=== PATIENT | female | born 1975 | race Asian ===

== ENCOUNTER 2019-03-06 17:08 | Inpatient (IN) | payer OTHER ==
[~2019-03-06] VITALS: Ht 157.5 cm; Wt 53.5 kg
[2019-03-06] VITALS (9 sets, daily range): BP systolic 62–112; BP diastolic 54–81
--- NOTE | 2019-03-06 17:08 | NUR ---
PT BIBA ALS TO ER BED 10
[2019-03-06] MEDS ORDERED: TEMA15CA24 PO (17:14)
[2019-03-06] MEDS ORDERED: ROSU20TA1 PO (17:14)
[2019-03-06] MEDS ORDERED: CABO60TA PO (17:14)
[2019-03-06] MEDS ORDERED: FAMO-90 PO (17:14)
[2019-03-06] MEDS ORDERED: DEC4 PO (17:14)
[2019-03-06] MEDS ORDERED: VANCOMYCIN 1,000 MG in DEXTROSE 5% 250 ML IV ONE (17:15)
[2019-03-06] MEDS ORDERED: SULF-58 PO (17:15)
[2019-03-06] MEDS ORDERED: PIPERACILLIN/TAZOBACTAM 4.5 GM in DEXTROSE 5% 100 ML IV ONE (17:15)
[2019-03-06] MEDS ORDERED: NACL 0.9% 1,000 ML IV ONE ×2 (17:15)
--- NOTE | 2019-03-06 17:32 | NUR ---
GARCIA CATH WITH UROMETER INSERTED--NO RETURN OF URINE AT THIS TIME.
[2019-03-06] MEDS ORDERED: VANCOMYCIN 1,000 MG VIAL ONE (17:33)
[2019-03-06] MEDS ORDERED: ACETAMINOPHEN 650 MG SUPP RC ONE (17:35)
--- NOTE | 2019-03-06 18:05 | NUR ---
XRAY AT BEDSIDE
--- NOTE | 2019-03-06 18:07 | NUR ---
43/F WITH HX OF LUNG CA WITH METS TO THE BRAIN BIBA WITH BS 130, GCS 8, TACHYCARDIA 160, temp 104, BP 91/62, 22G TO RT HAND AND INFUSING NS IVF, ON 15L NON REBREATHER MASK. RHONCHI BILATERALLY IN ALL LUNG RIDDLE. EYES OPEN SPONTANEOUSLY. GENERALIZED WEAKNESS. RT AT BEDSIDE.
--- NOTE | 2019-03-06 18:31 | NUR ---
DR. BROUSSARD DISCUSSING POC WITH FAMILY AT BEDSIDE. NOTIFIED RT TO COME SUCTION PT PER DR. BROUSSARD ORDERS.
--- NOTE | 2019-03-06 18:35 | NUR ---
RT AT BEDSIDE.
--- NOTE | 2019-03-06 18:50 | NUR ---
DR. BROUSSARD USED [employer] HEAD CAGER #[id number] TO DISCUSS POC WITH AT BEDSIDE.
--- NOTE | 2019-03-06 18:55 | NUR ---
BP 86/64, REPEAT 97/53, DR. BROUSSARD NOTIFIED.
[2019-03-06] MEDS ORDERED: NOREPINEPHRINE 4 MG in DEXTROSE 5% 250 ML IV ONE (19:00)
--- NOTE | 2019-03-06 19:03 | NUR ---
Pt report given to Jorge RIOJAS. Transfer of care at this time.
[2019-03-06 19:09] LABS: BASOPHILS % (AUTO) 0.2 % (0.0-2.0); EOSINOPHILS % (AUTO) 0.1 % (0.0-4.0); HEMATOCRIT 44.1 % (36-48); HEMOGLOBIN 13.6 g/dL (12.0-16.0); LYMPHOCYTES # (AUTO) 0.3 K/uL (2.5-16.5); LYMPHOCYTES % (AUTO) 16.7 % (20.5-51.1); MEAN CORPUSCULAR HEMOGLOBIN 28 pg (27-31); MEAN CORPUSCULAR HGB CONC 31 g/dL (33-37); MEAN CORPUSCULAR VOLUME 90.7 fL (80-94); MONOCYTES # (AUTO) 0.1 K/uL (0.8-1.0); MONOCYTES % (AUTO) 4.6 % (1.7-9.3); NEUTROPHILS # (AUTO) 1.6 K/uL (1.8-7.7); NEUTROPHILS % (AUTO) 78.4 % (42.2-75.2); PLATELET COUNT (AUTO) 127 K/uL (140-450); RED BLOOD CELL COUNT(AUTO) 4.86 MIL/uL (4.20-5.40); RED CELL DISTRIBUTION WIDTH 20.1 % (11.6-13.7)
[2019-03-06] MEDS ORDERED: HYDROcodone/APAP 5/325 MG 1 TAB TAB PO PRN (19:40)
[2019-03-06] MEDS ORDERED: MORPHINE SULFATE 2 MG/ML SYR IVP PRN (19:40)
[2019-03-06] MEDS ORDERED: NOREPINEPHRINE 4 MG/4 ML VIAL IV ONE (19:40)
[2019-03-06] MEDS ORDERED: LORazepam 2 MG/ML VIAL IM/IVP PRN (19:40)
[2019-03-06] MEDS ORDERED: ZOLPIDEM 5 MG TAB PO PRN (19:40)
[2019-03-06] MEDS ORDERED: DOCUSATE SODIUM 100 MG GELCAP PO PRN (19:40)
[2019-03-06] MEDS ORDERED: ONDANSETRON 4 MG/2 ML VIAL IM/IVP PRN (19:40)
[2019-03-06 19:41] LABS: WHITE BLOOD COUNT (AUTO) 2.1 K/uL (4.8-10.8)
[2019-03-06 19:43] LABS: PROTHROMBIN TIME 14.2 secs (10.8-13.4)
--- NOTE | 2019-03-06 20:18 | NUR ---
Dr. Osullivan at patient bedside.
[2019-03-06 20:30] LABS: APPEARANCE,URINE CLOUDY (CLEAR); BILIRUBIN,URINE 1+ (NEGATIVE); BLOOD, URINE 3+ (NEGATIVE); COLOR,URINE YELLOW (YELLOW); LEUKOCYTE ESTERASE ,URINE TRACE (NEGATIVE); NITRITE, URINE NEGATIVE (NEGATIVE); PH,URINE 5.5 (5.0-9.0); UGLUCOSE NEGATIVE (NEGATIVE)
[2019-03-06] MEDS ORDERED: SUCCINYLCHOLINE CHLORIDE 200 MG/10 ML VIAL IVP ONE (20:35)
[2019-03-06] MEDS ORDERED: ETOMIDATE 20 MG/10 ML VIAL IVP ONE (20:35)
--- NOTE | 2019-03-06 20:35 | NUR ---
ADMINISTERED ETOMIDATED 10MG, SUCC 60MG.
--- NOTE | 2019-03-06 20:40 | NUR ---
PT INTUBATED. PT TOLERATED PROCEDURE.
--- NOTE | 2019-03-06 20:45 | NUR ---
REASSESSED ETOMIDATE AND SUCC. NADR. PT VSS. WILL CONTINUE TO MONITOR.
[2019-03-06] MEDS ORDERED: VANCOMYCIN PER PHARMACY MC PRN (20:50)
[2019-03-06] MEDS ORDERED: ALBUTEROL SULFATE/IPRATROPIU 3 ML SOL IH PRN (20:50)
[2019-03-06 20:54] LABS: BARBITURATE, URINE NEG. ng/ml (NEG <=200); BENZODIAZEPINE, URINE NEG. ng/mL (NEG <=200); CANNABINOID, URINE NEG. ng/mL (NEG <=50); COCAINE, URINE NEG. ng/mL (NEG <=300); OPIATE, URINE NEG. ng/mL (NEG <=2000); PHENCYCLIDINE SCREEN,URINE NEG. ng/mL (NEG <=25)
[2019-03-06 20:56] LABS: MAGNESIUM 2.1 mg/dL (1.8-2.4); PHOSPHORUS 2.7 mg/dL (2.5-4.9); THYROID STIMULATING HORMONE 0.63 uIU/mL (0.34-3.74)
[2019-03-06 20:58] LABS: RBC,URINE 50-80 /HPF (0-5)
[2019-03-06] MEDS: DEXT 5% /NACL 0.9% 1,000 ML IV SCH ×2 (20:58→21:34)
[2019-03-06 20:59] LABS: WBC,URINE NONE SEEN /HPF (0-5)
[2019-03-06 21:00] LABS: FINE GRANULAR CASTS,URINE 0-10 /LPF (None Seen); HYALINE CASTS, URINE 0-10 /LPF (None Seen)
--- NOTE | 2019-03-06 21:07 | NUR ---
RAD AT BEDSIDE
[2019-03-06 21:09] LABS: CREATINE KINASE MB 1.3 ng/mL (0-3.6)
[2019-03-06] MEDS ORDERED: HEPARIN PER PHARMACY MC PRN (21:15)
[2019-03-06] MEDS ORDERED: hePARIN / DEXT 5% PREMIX 250 ML IV SCH (21:15)
[2019-03-06] MEDS ORDERED: TEMAZEPAM 15 MG CAP PO PRN (21:35)
[2019-03-06] MEDS ORDERED: levETIRAcetam 100 MG/ML VIAL IV ONE ×2 (21:40→23:55)
--- NOTE | 2019-03-06 21:55 | NUR ---
PATIENT BROUGHT INTO ICU BED 2 VIA GURNEY. PATIENT ANOx0, CANNOT MAKE NEEDS KNOWN, OPENS EYES TO PAIN/SUCTION. ETT TO VENT, ACVC 12, FI02 100%, TV 450, PEEP 5, LUNG SOUNDS DIMINISHED, BREATHING IS UNLABORED. MODERATE AMOUNT OF BLOODY SECRETIONS NOTED IN ETT. S1S2, SINUS TACHYCARDIA ON MONITOR. BLOOD PRESSURE IS TRENDING LOW, BP-90/68, IV BOLUS CURRENTLY INFUSING. LARGE BLOTCH OF REDNESS WITH MINIMAL AMOUNTS OF WELTS NOTED ON ABDOMEN, SKIN INTACT, NO SIGNS OF SECRETIONS. GARCIA CATHETER IN PLACE WITH CLEAR DARK ALE URINE NOTED. RIGHT AND LEFT WRIST PERIPHERAL IV'S, BOTH 20G, FLUSHED AND PATENT. PROPOFOL INFUSING AT 5MCG/KG/MIN. RASS -2, PATIENT ABLE TO OPEN EYES. DRY WEIGHT 51KG. BED IS LOCKED AND IN LOW POSITION, HOB 30 DEGREES. WILL CONTINUE TO MONITOR.
--- NOTE | 2019-03-06 21:55 | NUR ---
PT ADMITTED TO ICU BED #2. TRANSFERRED PT VIA GRUNEY WITH SAYRA EMT, DANGELO EMT, AURY RT; STABLE CONDITION. REPORT GIVEN TO OSMAR RIOJAS. PT CARE TRANSFERRED TO RECEIVING RN.
[2019-03-06 22:00] LABS: ALBUMIN 1.7 g/dL (3.4-5.0); ANION GAP 19.3 (8-16); CREATININE 1.2 mg/dL (0.6-1.3); TOTAL BILIRUBIN 2.1 mg/dL (0.0-1.0)
[2019-03-06] MEDS ORDERED: NACL 0.9% 2,000 ML IV ONE (22:00)
[2019-03-06 22:03] LABS: POTASSIUM 2.3 mmol/L (3.5-5.1)
[2019-03-06] MEDS ORDERED: POTASSIUM CHLORIDE 10 MEQ TABER PO SCH (22:05)
[2019-03-06] MEDS ORDERED: KCL 20 MEQ/WATER INJ PREMIX 200 ML IV SCH (22:05)
--- NOTE | 2019-03-06 22:05 | NUR ---
MD RESIDENT UPDATING PATIENT FAMILY ON PATIENT CONDITION. USED DIRECTOR OF CLINICAL APPLICATIONS PHONE. DIRECTOR OF CLINICAL APPLICATIONS ID # [id number] [id number], LIBERIAN SPEAKING. PATIENT FAMILY VERBALIZED UNDERSTANDING. CONSENT SIGNED FOR CENTRAL LINE INSERTION.
--- NOTE | 2019-03-06 22:20 | NUR ---
PATIENT TURNED AND REPOSITIONED, PROVIDED ORAL CARE. PATIENT HAS PRODUCTIVE COUGH AND SLIGHTLY BLOODY SECRETIONS IN TUBING NOTED. PATIENT OPENS EYES TO LIGHT PAIN.
--- NOTE | 2019-03-06 23:25 | NUR ---
NGT INSERTED TO RIGHT NARE ON FIRST ATTEMPT. POSITIVE AIR CHECK/AUSCULTATION VERIFIED BY 2 RN's. PENDING XRAY CONFIRMATION.
--- NOTE | 2019-03-06 23:30 | NUR ---
PATIENT INTUBATED AND TRANSFERRED FROM ER TO ICU. PATIENT STABLE ON VENT AT THIS TIME. ABG DONE AND RESULTS READ TO RN, FIO2 LOWERED FROM 100% TO 40%. PATIENT STABLE NO RESP DISTRESS NOTED.
--- NOTE | 2019-03-06 23:40 | NUR ---
RESIDENT DOCTOR AT BEDSIDE TO START CENTRAL LINE INSERTION. TRANSPORTATION SECURITY OFFICER AND 2 RN's AT BEDSIDE, TIMEOUT COMPLETE.
[2019-03-07] VITALS (102 sets, daily range): BP systolic 72–155; BP diastolic 64–100
[2019-03-07] MEDS ORDERED: cefTRIAXone 1,000 MG VIAL ONE (00:46)
[2019-03-07] MEDS ORDERED: PIPERACILLIN/TAZOBACTAM 3.375 GM VIAL IV ONE (00:58)
--- NOTE | 2019-03-07 01:15 | NUR ---
LAST IV FLUID BOLUS COMPLETE, PATIENTS BLOOD PRESSURE 102/73, ST ON MONITOR, FLACC 0. WILL CONTINUE TO MONITOR.
[2019-03-07] MEDS: DEXT 5% / NACL 0.45% 1,000 ML IV SCH ×2 (02:26→18:05)
[2019-03-07] MEDS: levETIRAcetam 500 MG in NACL 0.9% 100 ML IV SCH ×3 (02:26→21:24)
[2019-03-07] MEDS: PIPERACILLIN/TAZOBACTAM 3.375 GM in DEXTROSE 5% 50 ML IV SCH ×5 (02:27→23:55)
[2019-03-07] MEDS: DEXAMETHASONE 4 MG/ML VIAL IVP SCH ×5 (02:33→23:56)
--- NOTE | 2019-03-07 03:00 | NUR ---
CHLORHEXIDINE BATH PROVIDED, PATIENT TOLERATED WELL, SEDATED, ON PROPOFOL DRIP, NO BOWEL MOVEMENT, DIAPER IN PLACE, GARCIA BAG EMPTIED, DARK ALE URINE NOTED. SKIN IS INTACT, SLIGHT REDNESS NOTED TO ABDOMEN, FAMILY REPORTED PATIENT HAD LEFT HEATING PAD ON STOMACH WHEN LOC DECREASED AND LEFT HEATING PAD ON SKIN. BED IS LOCKED AND IN LOW POSITION, PILLOWS PLACED TO SUPPORT HEAD. HOB 30 DEGREES, WILL CONTINUE TO MONITOR.
--- NOTE | 2019-03-07 04:00 | NUR ---
VAP ORAL CARE PROVIDED. FLACC 0, ST ON MONITOR, BLOOD PRESSURE STABLE, AFEBRILE.
--- NOTE | 2019-03-07 05:29 | NUR ---
0450 patient taken to cat scan being bagged and brought back and placed back on vent with no incident
--- NOTE | 2019-03-07 05:51 | NUR ---
RESIDENT MD MADE AWARE OF CRITICAL CT SCAN OF HEAD RESULTS. POSSIBLE INFARCT AND FOCAL HEMORRHAGE/CALCIFICATION. WILL CARRY OUT ANY NEW ORDERS.
[2019-03-07 06:46] LABS: EOSINOPHILS % (AUTO) 0.8 % (0.0-4.0); HEMATOCRIT 42.4 % (36-48); HEMOGLOBIN 12.9 g/dL (12.0-16.0); LYMPHOCYTES # (AUTO) 0.3 K/uL (2.5-16.5); LYMPHOCYTES % (AUTO) 9.5 % (20.5-51.1); MEAN CORPUSCULAR HEMOGLOBIN 28 pg (27-31); MEAN CORPUSCULAR HGB CONC 30 g/dL (33-37); MEAN CORPUSCULAR VOLUME 91.4 fL (80-94); MONOCYTES % (AUTO) 1.3 % (1.7-9.3); NEUTROPHILS # (AUTO) 2.8 K/uL (1.8-7.7); NEUTROPHILS % (AUTO) 88.4 % (42.2-75.2); PLATELET COUNT (AUTO) 108 K/uL (140-450); RED BLOOD CELL COUNT(AUTO) 4.65 MIL/uL (4.20-5.40); RED CELL DISTRIBUTION WIDTH 20.1 % (11.6-13.7); WHITE BLOOD COUNT (AUTO) 3.2 K/uL (4.8-10.8)
[2019-03-07 06:47] LABS: CARBON DIOXIDE 22.1 mmol/L (21-32); CREATININE 0.9 mg/dL (0.6-1.3); POTASSIUM 3.1 mmol/L (3.5-5.1)
--- NOTE | 2019-03-07 07:30 | NUR ---
RECEIVED PT FROM PM NURSE. PT DOES NOT OPEN EYES TO VERBAL STIMULI AND UNABLE TO FOLLOW COMMANDS. BEDSIDE MONITOR SHOWS ST 110S. RIGHT EYE PUPIL ACTIVE. LEFT EYE SLUGGISH. PT HAS IV TO RIGHT IJ AND LEFT WRIST # 20 RUNNING PROPOFOL 5 MCG/KG/MIN BASED ON DRY WEIGHT 51 KG, RASS -2 AND D5 1/2 NS AT 50 CC/HR. ETT TO VENT WITH SETTING FIO2=40%, TV= 450, PEEP 5, AC =12. ABD SOFT, PT HAS REDNESS TO UPPER ABD. PT HAS F/C IN PLACE WITH URINE NOTED. HOB ELEVATED 30 DEGREES WITH LOW BED POSITION, WILL CONTINUE TO MONITOR.
[2019-03-07 07:42] LABS: MAGNESIUM 1.6 mg/dL (1.8-2.4); PHOSPHORUS 2.5 mg/dL (2.5-4.9)
[2019-03-07] MEDS: ALBUTEROL SULFATE/IPRATROPIU 3 ML SOL IH SCH ×3 (07:53→19:14)
--- NOTE | 2019-03-07 08:49 | NUR ---
PATIENT HAS BEEN SCREENED AND CATEGORIZED HIGH NUTRITION RISK. PATIENT WILL BE SEEN WITHIN 1-2 DAYS OF ADMISSION. 03/07/19-03/08/[address]
[2019-03-07] MEDS ORDERED: NON-FORMULARY ITEM (Rosuvastatin Calcium* (Crestor*) 20 MG) PO SCH (09:00)
[2019-03-07] MEDS ORDERED: CABOZANTINIB S MALATE 60 MG PO SCH (09:00)
--- NOTE | 2019-03-07 09:00 | NUR ---
APPLIED SCD TO PT. PT RESPONDED TO SUCTION OR DEEP PAIN STIMULI ONLY, OPENS EYES ONLY. DOES NOT TALK OR FOLLOW COMMANDS.
[2019-03-07] MEDS: FAMOTIDINE 20 MG TAB PO SCH ×2 (09:30→21:24)
[2019-03-07] MEDS: KCL 20 MEQ/WATER INJ PREMIX 100 ML IV SCH ×2 (09:31→11:31)
--- NOTE | 2019-03-07 09:55 | NUR ---
STEAM LOCOMOTIVE FIRER/FIREMAN AT BEDSIDE.
--- NOTE | 2019-03-07 11:26 | NUR ---
PT ASLEEP IN BED NOT IN ANY DISTRESS. WILL CONTINUE TO MONITOR.
--- NOTE | 2019-03-07 12:00 | NUR ---
TURNED AND REPOSITIONED PT. NO S/S OF RESPIRATORY DISTRESS NOTED. PT TEMP 96.7F. GAVE PT WARM BLANKET.
[2019-03-07] MEDS ORDERED: CABO60TA PO (13:07)
--- NOTE | 2019-03-07 13:10 | NUR ---
DISCHARGE PLANNIN43 Y/O FEMALE PATIENT FROM HOME, WHO CAME IN DUE TO NON AROUSABLE FROM [id number]. PAST MEDICAL HISTORY INCLUDE STAGE 4 LUNG CA AND GERD. INITIAL DIAGNOSIS OF PNEUMONIA AND SEPSIS. LABS ON ADMISSION WBC 2.1, TODAY 3.2, NA/K 163/2.3 - 157/3.1., MAG 1.6, LACTIC ACID 3.4-3.1 AND TROPONIN 1.196-0.988. CARDIO CONSULT WITH DR. COUCH FOR ELEVATED TROPONIN. NEPHRO CONSULT WITH DR. ALCALA FOR HYPONATREMIA. NEURO CONSULT WITH JUDI LU FOR BRAIN METS. PULMO CONSULT WITH DR. MEDRANO FOR CRITICAL CARE/PULMO. CXR SHOWED SMALL LEFT PLEURAL EFFUSION AND PATCHY AND INTERSTITIAL OPACITIES IN THE LEFT LUNG. CT HEAD SHOWED CHRONIC SMALL VESSEL ISCHEMIC CHANGES AND CORTICAL ATROPHY; AND 1.6 X 2 X 1.4CM ABDIRAHMAN MIDBRAIN AREA OF LOW ATTENUATION POSSIBLE INFARC. ON ROCEPHIN, ZOSYN AND KEPPRA IV. ON PROPOFOL DRIP. DC PLAN PENDING ON PATIENT'S RESPONSE TO TREATMENT. Addendum: 03/09/19 at 0841 by Maribel Sandhu CURRENT LABS INCLUDE WBC 4.2, H/H 10.0/31.4, NA/K 147/3.3 AND PHOS 0.7. CXR SHOWED MULTIPLE LEFT LUNG CAVITARY LESIONS WHICH COULD REPRESENT INFECTION OR CARCINOMA, INCLUDING METASTASIS. RIGHT LOWER LOBE BRONCHIECTASIS AND BRONCHIAL WALL THICKENING. ONCOLOGIST CONSULT WITH DR. AMEZCUA FOR ST 4 LUNG CANCER. NEURO, PULMO, CRITICAL CARE CONSULTS IN PLACE. Addendum: 03/14/19 at 0909 by Maribel Sandhu CM PATIENT IS STILL ORALLY INTUBATED FIO2 24%. STILL ON ZOSYN, KEPPRA AND DEXAMETHASONE IV. CARDIO, ONCO, CRITICAL CARE/PULMO, NEPHRO AND NEURO CONSULTS IN PLACE. ON MODIFIED CODE NOW. FAMILY PLANS TO TERMINALLY EXTUBATE PATIENT TODAY. Addendum: 03/14/19 at 1306 by Maribel Sandhu CM FAMILY MEETING AT 1110 AM DONE. PATIENT EXTUBATED AT 1228PM AND WAS PLACED ON O2 AT 2LPM/NC.
--- NOTE | 2019-03-07 14:00 | NUR ---
RECHECKED TEMP 97.6F. NO S/S OF RESPIRATORY DISTRESS NOTED.
--- NOTE | 2019-03-07 14:02 | NUR ---
03/07/19 RD INITIAL ASSESSMENT COMPLETED PLEASE REFER TO NUTRITION ASSESSMENT UNDER CARE ACTIVITY FOR ESTIMATED NUTRITIONAL NEEDS. 1. RECOMMEND VITAL AF 1.2 @ 50 ML/HR -THIS WILL PROVIDE 1200 ML OF VOLUME, 1440 KCAL, AND 90 GM OF PROTEIN 2. RECOMMEND FREE WATER FLUSH 120 ML Q6H 3. IF/WHEN PT IS EXTUBATED, RECOMMEND A SWALLOW EVALUATION FOR AN ORAL DIET 4. RD TO FOLLOW-UP 2-3 DAYS, HIGH RISK CHUCHO BURGER RD
[2019-03-07] MEDS ORDERED: MAG SULF 2000 MG/WATER PREMIX 50 ML IV SCH (16:00)
--- NOTE | 2019-03-07 17:31 | NUR ---
PT NOT IN ANY DISTRESS AT THIS TIME. VENT ALARMS REMAIN ON AND FUNCTIONING. ETT REMAINS SECURE WITH A PATENT AIRWAY.
--- NOTE | 2019-03-07 18:00 | NUR ---
PYXIS DOES NOT WORK, UNABLE TO GET 1800 DECADRON. PHARMACIST MADE AWARE.
--- NOTE | 2019-03-07 18:48 | NUR ---
CALLED DR. STILES FOR CONSULTATION. NOTIFIED PT HAD LUNG CANCER METS TO BRAIN. WE DID EEG THIS MORNING . GO STATED WE SHOULD CONSULATE ONCOLOGIST. NOTIFIED FAB.
--- NOTE | 2019-03-07 19:10 | NUR ---
ENDORSED TO PM SHIFT SHINE RAUSCH
--- NOTE | 2019-03-07 19:45 | NUR ---
PATIENT LYING IN BED, EYES CLOSED, OPENS EYES TO LIGHT PAIN, ON SEDATION, RASS -2, DRY WEIGHT 51 KG. ETT TO VENT, ACVC 12, FI02 28%, TV 450, PEEP 5. LUNG SOUNDS ARE CLEAR BILATERALLY IN UPPER LOBES, AND DIMINISHED AT BASES. BREATHING IS EVEN AND UNLABORED. S1S2, SINUS TACH ON MONITOR. BLOOD PRESSURE STABLE. AFEBRILE. REDNESS ON ABDOMEN AND SLIGHT BUBBLING FORMING (DAILEY/WELTS). NGT IN PLACE TO RIGHT NARE, CONNECTED TO TUBE FEEDING, RATE AT 30ML/HR. RIGHT IJ IN PLACE, TRIPLE LUMEN, FLUSHED AND PATENT. INFUSING PROPOFOL AT 5 MCG/KG/MIN, IVF D5 1/2NS. LEFT AND RIGHT WRIST PERIPHERAL IV'S IN PLACE, BOTH 20G, FLUSHED AND PATENT, SALINE LOCKED. GARCIA CATHETER IN PLACE, STRAW COLORED URINE WITH SEDIMENTS NOTED. SCD's IN PLACE. BED IS LOCKED AND IN LOW POSITION, SAFETY ALARMS IN PLACE, HOB 30 DEGREES, WILL CONTINUE TO MONITOR.
--- NOTE | 2019-03-07 20:00 | NUR ---
AT BEDSIDE FOR UPDATE.
--- NOTE | 2019-03-07 21:05 | NUR ---
SCHEDULED MEDICATIONS ADMINISTERED, NGT AIR CHECK/AUSCULTATION CONFIRMED. RESIDUALS 35ML, CONTINUE TUBE FEEDING.
--- NOTE | 2019-03-07 21:45 | NUR ---
PATIENT HAS A SMALL PRESSURE INJURY ON THE SACRUM, DRESSING IN PLACE FROM HOME/. PICTURES AND MEASUREMENTS TAKEN AND PLACED IN CHART, CLEANED WOUND AND REPLACED DRESSING WITH OPTIFOAM. WILL FOLLOWUP WITH WOUND CONSULT.
--- NOTE | 2019-03-07 22:30 | NUR ---
VAP ORAL CARE PROVIDED, PATIENT WITHDRAWS TO PAIN. SUCTIONED ORALLY AND ENDOTRACHALLY, WHITE/CREAMISH SECRETIONS NOTED. PT TOLERATED WELL. FLACC 0. WILL CONTINUE TO MONITOR.
[2019-03-08] VITALS (98 sets, daily range): BP systolic 111–147; BP diastolic 70–97
--- NOTE | 2019-03-08 00:10 | NUR ---
TURNED AND REPOSITIONED PATIENT, USED PILLOWS TO HELP PROP HEAD WITH PROPER BODY ALIGNMENT. NO SIGNS OF DISTRESS NOTED AT THIS TIME.
--- NOTE | 2019-03-08 02:15 | NUR ---
EQUAL CHEST RISE AND FALL NOTED. BREATHING IS UNLABORED. OPENS EYES TO PAIN, PROPOFOL DRIP INFUSING, RASS -2.
--- NOTE | 2019-03-08 03:00 | NUR ---
SPOKE WITH COMMERCIAL INTELLIGENCE MANAGER, CONFIRMED THERE ARE TWO MORE PATIENTS IN ER FOR CT, WILL COME TO TRANSPORT PATIENT FOR CHEST CT AFTER. WILL FOLLOWUP
[2019-03-08] MEDS: DEXT 5% / NACL 0.45% 1,000 ML IV SCH (03:41)
--- NOTE | 2019-03-08 04:05 | NUR ---
PATIENT IN BED RESTING COMFORTABLY, AFEBRILE. PROVIDED VAP ORAL CARE. HOB 30 DEGREES, SIDERAILS UP x3.
--- NOTE | 2019-03-08 05:30 | NUR ---
PT TAKEN TO CT WITH RN, ORTHODONTIC BAND MAKER, RT AND RADIOLOGIST. PROPOFOL DRIP INFUSING, RT BAGGING PATIENT, TELE MONITOR CONNECTED.
--- NOTE | 2019-03-08 06:05 | NUR ---
PATIENT BACK TO ICU BED [address] SCAN. NO INCIDENTS NOTED. PATIENT CONNECTED TO VENT, SETTINGS ACVC 12, FI02 28%, TV 450, PEEP 5. SATURATIONS 100%. IV FLUIDS CONNECTED @ 50ML/HR. PATIENT IN STABLE CONDITION, VSS.
[2019-03-08 06:14] LABS: ANION GAP 12.4 (8-16); CARBON DIOXIDE 25.7 mmol/L (21-32); CREATININE 0.6 mg/dL (0.6-1.3); POTASSIUM 3.1 mmol/L (3.5-5.1)
[2019-03-08 06:15] LABS: PHOSPHORUS 1.4 mg/dL (2.5-4.9)
[2019-03-08 06:31] LABS: BASOPHILS % (AUTO) 0.1 % (0.0-2.0); EOSINOPHILS % (AUTO) 0.1 % (0.0-4.0); HEMATOCRIT 35.6 % (36-48); HEMOGLOBIN 11.1 g/dL (12.0-16.0); LYMPHOCYTES # (AUTO) 0.3 K/uL (2.5-16.5); LYMPHOCYTES % (AUTO) 4.5 % (20.5-51.1); MEAN CORPUSCULAR HEMOGLOBIN 28 pg (27-31); MEAN CORPUSCULAR HGB CONC 31 g/dL (33-37); MEAN CORPUSCULAR VOLUME 89.4 fL (80-94); MONOCYTES # (AUTO) 0.1 K/uL (0.8-1.0); MONOCYTES % (AUTO) 1.5 % (1.7-9.3); NEUTROPHILS # (AUTO) 7.3 K/uL (1.8-7.7); NEUTROPHILS % (AUTO) 93.8 % (42.2-75.2); PLATELET COUNT (AUTO) 92 K/uL (140-450); RED BLOOD CELL COUNT(AUTO) 3.98 MIL/uL (4.20-5.40); RED CELL DISTRIBUTION WIDTH 19.7 % (11.6-13.7); WHITE BLOOD COUNT (AUTO) 7.8 K/uL (4.8-10.8)
[2019-03-08] MEDS: ALBUTEROL SULFATE/IPRATROPIU 3 ML SOL IH SCH ×3 (06:56→19:17)
--- NOTE | 2019-03-08 06:59 | NUR ---
RECEIVED PT ON CARESCAPE ON DOCUMENTED SETTINGS, ALARMS ARE ON AND AUDIBLE, PTS ETT SIZE 7.5 IS SECURE [address] IN [address], PT IN HF NOT AWAKE, BS CLEAR , BMV HOB, VENT PLUGGED INTO RED OUTLET, WILL CONTINUE TO MONITOR
[2019-03-08] MEDS: PIPERACILLIN/TAZOBACTAM 3.375 GM in DEXTROSE 5% 50 ML IV SCH ×3 (07:08→17:28)
[2019-03-08] MEDS: DEXAMETHASONE 4 MG/ML VIAL IVP SCH ×3 (07:08→17:28)
--- NOTE | 2019-03-08 07:10 | NUR ---
ENDORSED CARE TO AM NURSE AT PATIENTS BEDSIDE. PATIENT SEDATED, RASS -2, FLACC 0.
--- NOTE | 2019-03-08 07:30 | NUR ---
RECEIVED PT FROM PM NURSE. PT OPENS EYES BUT NO TRACK. UNABLE TO FOLLOW COMMANDS. BEDSIDE MONITOR SHOWS SR RIGHT EYE PUPIL ACTIVE. LEFT EYE SLUGGISH. PT HAS IV TO RIGHT IJ AND LEFT WRIST # 20 RUNNING PROPOFOL 5 MCG/KG/MIN BASED ON DRY WEIGHT 51 KG, RASS -2 AND D5 1/2 NS AT 50 CC/HR. ETT TO VENT WITH SETTING FIO2=28%, TV= 450, PEEP 5, AC =12. ABD SOFT, SKIN NON INTACT ( SEE WOUND ASSESSMENT) PT HAS F/C IN PLACE WITH URINE NOTED. HOB ELEVATED 30 DEGREES WITH LOW BED POSITION, WILL CONTINUE TO MONITOR.
[2019-03-08] MEDS: levETIRAcetam 500 MG in NACL 0.9% 100 ML IV SCH ×2 (08:46→21:25)
[2019-03-08] MEDS ORDERED: CABOZANTINIB S MALATE 60 MG PO SCH (09:00)
[2019-03-08] MEDS ORDERED: MAG SULF 2000 MG/WATER PREMIX 50 ML IV SCH (09:00)
--- NOTE | 2019-03-08 09:05 | NUR ---
DR. KU NEPHRO CAME IN TO CHECK PT. UPDATED PT'S CONDITION. PER , STOP IVF, CARRIED OUT.
[2019-03-08] MEDS: KCL 20 MEQ/WATER INJ PREMIX 200 ML IV SCH ×2 (09:11→11:04)
--- NOTE | 2019-03-08 11:30 | NUR ---
IN TO CHECK PT. UPDATED PT'S CONDITION. HOLD PROPOFOL TO CHECK PT'S MENTAL STATUS PER DR. POLLOCK. PT OPENS EYES BUT DOES NOT FOLLOW COMMANDS EVEN IF PROPOFOL WAS OFF FOR ABOUT 20 MINUTES.
--- NOTE | 2019-03-08 12:00 | NUR ---
pepcid and liptor was given late due to pyxis out of order. called pharmacy to deliver meds.
[2019-03-08] MEDS: FAMOTIDINE 20 MG TAB PO SCH ×2 (12:20→21:25)
[2019-03-08] MEDS: ATORVASTATIN 20 MG TAB GT SCH (12:21)
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
[2019-03-08] MEDS ORDERED: ALGINATE ROPE MC SCH (13:10)
[2019-03-08] MEDS ORDERED: Z-GUARD PASTE TP SCH (13:11)
--- NOTE | 2019-03-08 16:00 | NUR ---
turned and repositioned pt. oral care given. suctioned pt with moderate amount of secretion. pt tolerated well.
[2019-03-08] MEDS: PROPOFOL 1000 MG/100 ML PREMIX 100 ML IV PRN (16:09)
--- NOTE | 2019-03-08 18:00 | NUR ---
pt resting in bed, no s/s of sob noted. vitals stable.
--- NOTE | 2019-03-08 19:10 | NUR ---
RECEIVED REPORT FROM DAYSHIFT NURSE AT PATIENTS BEDSIDE, VSS, NO SIGNS OF DISTRESS NOTED, WILL FOLLOWUP CARE.
--- NOTE | 2019-03-08 19:27 | NUR ---
PT RECEIVED FROM DAY SHIFT ON AC 12,450,+5, 35%. VENT PLUGGED INTO RED OUTLET. BMV AT BEDSIDE. PT SOUNDED CLEAR SAT 99%. WILL CONT TO MONITOR
--- NOTE | 2019-03-08 20:05 | NUR ---
PATIENT SEDATED, RASS -2. OPENS EYES TO PAIN, CANNOT TRACK, EYES REACTIVE TO LIGHT. ETT TO VENT, ACVC 12, FI02 28% TV 450, PEEP 5. LUNGS ARE CLEAR IN UPPER LOBES AND DIMINISHED AT BASES. BREATHING IS EQUAL AND UNLABORED. S1S2, SINUS RHYTHM ON MONITOR. NGT TO RIGHT NARE, CONNECTED TO TUBE FEEDING, RATE AT 30 ML. RIJ CENTRAL LINE IN PLACE, INFUSING PROPOFOL AT 5 MCG/KG/MIN, DRY WEIGHT 51KG. PERIPHERAL IV's AT LEFT AND RIGHT WRISTS, BOTH 20G, FLUSHED AND PATENT WITHOUT SYMPTOMS, SALINE LOCKED. ABDOMEN SOFT AND NONTENDER, WITH VERSATEL DRESSINGS NOTED. SMALL DAILEY WITH SKIN INTACT. GARCIA CATHETER IN PLACE WITH ALE COLORED URINE WITH SEDIMENT NOTED. PRESSURE INJURY WITH ZGUARD AND OPTIFOAM DRESSING IN PLACE, DRY AND INTACT. SCD'S IN PLACE AND HEEL PROTECTORS. BED IS LOCKED AND IN LOW POSITION, SIDERAILS UP, SAFETY ALARMS IN PLACE, HOB 30 DEGREES. WILL CONTINUE TO MONITOR.
--- NOTE | 2019-03-08 21:05 | NUR ---
PATIENT TURNED AND REPOSITIONED, VAP ORAL CARE PROVIDED. APPLIED ROLLED TOWELS TO MAINTAIN PROPER BODY ALIGNMENT WITH HEAD, PATIENT FLACCID.
--- NOTE | 2019-03-08 21:10 | NUR ---
NGT TO RIGHT NARE CONNECTED TO TUBE FEEDING. STOPPED INFUSION FOR AIR CHECK AND AUSCULTATION, CONFIRMED. RESIDUALS 5ML. MEDICATIONS ADMINISTERED.
--- NOTE | 2019-03-08 23:35 | NUR ---
RESTING WELL IN BED, NO S/SX OF DISTRESS. WILL CONTINUE TO MONITOR.
[2019-03-09] VITALS (100 sets, daily range): BP systolic 66–134; BP diastolic 33–83
[2019-03-09] MEDS: PIPERACILLIN/TAZOBACTAM 3.375 GM in DEXTROSE 5% 50 ML IV SCH ×4 (00:11→17:42)
[2019-03-09] MEDS: DEXAMETHASONE 4 MG/ML VIAL IVP SCH ×4 (00:11→17:45)
--- NOTE | 2019-03-09 00:30 | NUR ---
SCHEDULED MEDICATIONS GIVEN. PATIENT TURNED AND REPOSITIONED. DRESSING ON SACRUM IS DRY AND INTACT, NO DRAINAGE NOTED. MOVED BLOOD PRESSURE CUFF TO ARM, BP IS STABLE. SCD'S IN PLACE. PROVIDED ORAL CARE, +GAG REFLEX.
--- NOTE | 2019-03-09 02:05 | NUR ---
NO SIGNS OR SYMPTOMS OF DISTRESS OR SOB. PATIENT STILL ON PROPOFOL DRIP, ETT TO VENT, SETTINGS SET START OF SHIFT, WILL CONTINUE TO MONITOR.
--- NOTE | 2019-03-09 04:30 | NUR ---
SPONGE BATH, GARCIA CARE, AND VAP ORAL CARE PROVIDED. PATIENT TOLERATED FAIRLY. PATIENT COUGHS WITH POSITION CHANGES, MODERATE AMOUNT OF SECRETIONS NOTED. DRESSING TO SACRUM IS DRY AND INTACT. SCD'S IN PLACE, OFFLOADED PRESSURE SITES. SIDERAILS UP x3, HOB 30 DEGREES.
--- NOTE | 2019-03-09 06:15 | NUR ---
TURNED AND REPOSITIONED PATIENT, USE ROLLED TOWELS AND PILLS TO HELP PROP HEAD AND UPPER EXTREMITIES. D/C LEFT PERIPHERAL IV DUE TO SLIGHT HAND SWELLING, NON PITTING. FLACC 0.
[2019-03-09 06:16] LABS: HEMATOCRIT 31.4 % (36-48); LYMPHOCYTES # (AUTO) 0.2 K/uL (2.5-16.5); LYMPHOCYTES % (AUTO) 3.9 % (20.5-51.1); MEAN CORPUSCULAR HEMOGLOBIN 28 pg (27-31); MEAN CORPUSCULAR HGB CONC 32 g/dL (33-37); MEAN CORPUSCULAR VOLUME 88.3 fL (80-94); MONOCYTES # (AUTO) 0.1 K/uL (0.8-1.0); MONOCYTES % (AUTO) 1.6 % (1.7-9.3); NEUTROPHILS % (AUTO) 94.5 % (42.2-75.2); PLATELET COUNT (AUTO) 78 K/uL (140-450); RED BLOOD CELL COUNT(AUTO) 3.56 MIL/uL (4.20-5.40); RED CELL DISTRIBUTION WIDTH 18.9 % (11.6-13.7); WHITE BLOOD COUNT (AUTO) 4.2 K/uL (4.8-10.8)
[2019-03-09 06:20] LABS: ANION GAP 12.7 (8-16); CARBON DIOXIDE 26.6 mmol/L (21-32); CREATININE 0.4 mg/dL (0.6-1.3); POTASSIUM 3.3 mmol/L (3.5-5.1)
[2019-03-09 06:21] LABS: MAGNESIUM 2.4 mg/dL (1.8-2.4)
[2019-03-09 06:36] LABS: PHOSPHORUS 0.7 mg/dL (2.5-4.9)
[2019-03-09] MEDS ORDERED: SODIUM PHOS / POTASSIUM PHOS 1 PKT PDR NG SCH (07:00)
[2019-03-09] MEDS: ALBUTEROL SULFATE/IPRATROPIU 3 ML SOL IH SCH ×3 (07:01→21:04)
--- NOTE | 2019-03-09 07:01 | NUR ---
REC'D PT ON CARESCAPE VENT SETTINGS AC 12 VT 450 PEEP 5 FIO2 28% ALARMS ON AND AUDIBLE AND AMBU BAG AT SIDE OF VENT AND VENT IS PLUGGED INTO RED OUTLET, I\L TX GIVEN WITH DUONEB 3ML WITH NO ADVERSE REACTION POST TX, SNX PT MODERATE AMT OF [place] SECRETIONS B\S ARE RHONCHI BILATERALLY, PT IS ORALLY INTUBATED WITH 7.5 ET TUBE SECURED AT 21CM AND PT IS SLEEPING
--- NOTE | 2019-03-09 07:40 | NUR ---
RECEIVED PT FROM PM NURSE. PT OPENS EYES BUT UNABLE TO TRACK. UNABLE TO FOLLOW COMMANDS OR MAKE NEEDS KNOWN. BEDSIDE MONITOR SHOWS SR 80S. PT HAS IV TO RIGHT IJ RUNNING PROPOFOL 5 MCG/KG/MIN BASED ON DRY WEIGHT 51 KG, RASS -2 . ETT TO VENT WITH SETTING FIO2=28%, TV= 450, PEEP 5, AC =12. ABD SOFT, SKIN NON INTACT ( SEE WOUND ASSESSMENT). PT HAS NG TUBE FEEDING IN PLACE. PT HAS F/C IN PLACE WITH URINE NOTED. HOB ELEVATED 30 DEGREES WITH LOW BED POSITION, WILL CONTINUE TO MONITOR.
--- NOTE | 2019-03-09 08:30 | NUR ---
TURNED AND REPOSITIONED PT. ORAL CARE GIVEN, HU CARE GIVEN. TUBE FEEDING RESIDUAL CHECKED 70 CC ,RETURNED IT BACK. NG TUBE IN RIGHT PLACE, PLACEMENT CHECKED.
[2019-03-09] MEDS ORDERED: KCL 20 MEQ/WATER INJ PREMIX 100 ML IV SCH (09:00)
[2019-03-09] MEDS: levETIRAcetam 500 MG in NACL 0.9% 100 ML IV SCH ×2 (09:03→21:26)
[2019-03-09] MEDS: ATORVASTATIN 20 MG TAB GT SCH (09:03)
[2019-03-09] MEDS: FAMOTIDINE 20 MG TAB PO SCH ×2 (09:03→21:26)
--- NOTE | 2019-03-09 12:47 | NUR ---
03/09/19 RD FOLLOW UP COMPLETED PLEASE REFER TO NUTRITION ASSESSMENT UNDER CARE ACTIVITY FOR ESTIMATED NUTRITIONAL NEEDS. 1. RECOMMEND VITAL AF 1.2 @ 50 ML/HR -THIS WILL PROVIDE 1200 ML OF VOLUME, 1440 KCAL, AND 90 GM OF PROTEIN 2. RECOMMEND FREE WATER FLUSH 120 ML Q6H 3. IF/WHEN PT IS EXTUBATED, RECOMMEND A SWALLOW EVALUATION FOR AN ORAL DIET. 4. RD TO FOLLOW-UP 2-3 DAYS, HIGH RISK CHUCHO BURGER RD
--- NOTE | 2019-03-09 13:35 | NUR ---
PT HAD MODERATE AMOUNT OF STOOL, SOME FORMED, SOME LIQUID. CLEANED PT. BED SHEET CHANGED. PT TOLERATED WELL.
--- NOTE | 2019-03-09 16:00 | NUR ---
NOTIFIED DR. LEMUS FOR PROPOFOL INFUSION BECAUSE NO MATTER PT IS ON OR OFF PROPOFOL. MENTAL STATUS NO CHANGE AND PT IS ON MINIMUM 5 MCG/KG/MIN. DR. LEMUS TOLD ME HE WILL GET ME BACK HE NEEDS TO ASK HIS SENIOR DOCTOR.
[2019-03-09] MEDS: PROPOFOL 1000 MG/100 ML PREMIX 100 ML IV PRN (16:57)
--- NOTE | 2019-03-09 18:39 | NUR ---
PT HAD BM AGAIN, BED SHEET CHANGED, CLEANED PT. WOUND DRESSING TO SACRAL CHANGED AGAIN. SOME FRESH BLOOD CAME OUT FROM NG TUBE WHILE TURNING PT, ALSO SOME TINGED-BLOOD NOTED WHILE SUCTIONING PT. NOTIFIED CHARGE NURSE AND
--- NOTE | 2019-03-09 19:16 | NUR ---
RECEIVED PT FROM DAY SHIFT ON AC 12,450,+5,28%. ALARMS AUDIBLE AND CLEAR. VENT PLUGGED INTO RED OUTLET. BMV AT BEDSIDE. WILL CONT. TO MONITOR
--- NOTE | 2019-03-09 19:20 | NUR ---
RT AT BEDSIDE. CHANGE OF SHIFT REPORT DONE AT BEDSIDE BY DAY NURSE KATIA. PATIENT ETT TO VENT [phone]. [phone] AT LIP. PATIENT PERRL BILATERALLY AND SYMMETRICAL. NG TUBE IN NARES. WITH TUBE FEEDING VITAL AF 1.2 AT RATE OF 30 AND FREE WATER FLUSH OF 120Q4H. PATIENT TOLERATING WELL. NO RESIDUAL NOTED. NG TUBE IN PLACE VIA AUSCULTATION. PATIENT HAS RIGHT IJ ASYMPT OF INFECTION, PATENT AND IN PLACE. SEDATED BY RIJ RUNNING PROPOFOL AT 5MCG/KG/MIN WITH DRY WEIGHT OF 51 KG AND RASS -2. OPENS EYES TO VOICE OR TOUCH. SKIN NOT INTACT. SEE WOUND CARE ASSESSMENT. RESPIRATIONS UNLABORED AND WNL. LUNG SOUNDS CLEAR. HR REGULAR. BOWEL SOUNDS ACTIVE IN ALL 4 QUAD. PATIENT HAS MILD EDEMA ON BILATERAL HANDS. PULSES PRESENT ON ALL EXTREMITIES. NON SKID SOCKS PRESENT WITH HEEL PROTECTORS ON. PATIENT HAS GARCIA CATHETER WITH YELLOW URINE RUNNING IN TUBE WITH SEDIMENT NOTED. DR. GASTELUM CALLED TO CONFIRM PROPOFOL ORDER OF RASS -2. READ BACK RASS TO BE -2. CONTACT PRECAUTIONS. SIDE RAILS UP. BED IN LOWEST POSITION. OPENS EYES TO VOICE. VSS. NO SOB OR S/S OF DISTRESS NOTED. WILL CONTINUE TO MONITOR.
--- NOTE | 2019-03-09 20:20 | NUR ---
ENTERED UNIT. AT BEDSIDE. CONTACT PRECAUTIONS IN PLACE. VSS. PATIENT REPOSITIONED AND VAP ORAL CARE GIVEN.PATIENT TOLERATED WELL. WILL CONTINUE TO MONITOR.
--- NOTE | 2019-03-09 21:00 | NUR ---
MEDICATION ADMINISTRATION PER MD ORDERS. TOLERATED WELL. VSS. PATIENT OPENED EYES TO TOUCH AND VOICE. WILL CONTINUE TO MONITOR. Addendum: 03/10/19 at 0205 by Olga Barrera RN RT ALSO AT BEDSIDE
--- NOTE | 2019-03-09 22:34 | NUR ---
KUB BEING DONE AT BEDSIDE. RADIOLOGY AT BEDSIDE. WILL CONTINUE TO MONITOR. TOLERATED WELL.
--- NOTE | 2019-03-09 22:40 | NUR ---
RT AT BEDSIDE TO CHECK TUBING AND CONNECTIONS. CHECKED BALLOON AND FILLED. CHECKED PLACEMENT OF NG TUBE. NG TUBE IN PLACE PER AUSCULTATION. VSS. WILL CONTINUE TO MONITOR.
--- NOTE | 2019-03-09 23:18 | NUR ---
RT AT BEDSIDE.VSS.
[2019-03-10] VITALS (16 sets, daily range): BP systolic 94–105; BP diastolic 64–74
--- NOTE | 2019-03-10 00:05 | NUR ---
VAP ORAL CARE PERFORMED. REPOSITIONED PATIENT. AFEBRILE. TOLERATED WELL. NO SOB. NO S/S OF DISTRESS NOTED. WILL CONTINUE TO MONITOR. VSS
[2019-03-10] MEDS: DEXAMETHASONE 4 MG/ML VIAL IVP SCH (00:34)
[2019-03-10] MEDS: PIPERACILLIN/TAZOBACTAM 3.375 GM in DEXTROSE 5% 50 ML IV SCH (00:34)
--- NOTE | 2019-03-10 01:26 | NUR ---
RT AT PATIENT BEDSIDE. VSS. PATIENT FLACC 0. RASS -2. NO SOB OR S/S OF DISTRESS NOTED. WILL CONTINUE TO MONITOR.
--- NOTE | 2019-03-10 03:31 | NUR ---
PATIENT LYING IN BED. VSS. URINE IN GARCIA CATHETER BAG. NO SOB NOTED. NO S/S OF DISTRESS. WILL CONTINUE TO MONITOR.
[2019-03-10] MEDS ORDERED: POTASSIUM CHLORIDE 20% 40 MEQ/15 ML UDC ONE (13:49)
[2019-03-11 07:27] VITALS: BP 108/74
[2019-03-11] MEDS: levETIRAcetam 500 MG in NACL 0.9% 100 ML IV SCH ×2 (08:32→21:00)
[2019-03-11] MEDS: ATORVASTATIN 20 MG TAB GT SCH (08:33)
[2019-03-11] MEDS: FAMOTIDINE 20 MG TAB PO SCH ×2 (08:33→21:00)
[2019-03-11] MEDS ORDERED: POTASSIUM PHOSPHATE 15 MM in NACL 0.9% 250 ML IV ONE (08:35)
[2019-03-11] MEDS ORDERED: POTASSIUM CHLORIDE 20% 40 MEQ/15 ML UDC NG SCH (08:35)
--- NOTE | 2019-03-11 19:00 | NUR ---
RECEIVED REPORT FORM SHINE [facility] FOR CONTINUITY OF CARE.
--- NOTE | 2019-03-11 19:20 | NUR ---
ASSUMED CARE OF PT.INITIAL ASSESSMENT COMPLETED.PT LETHARGIC.OPENS EYES SPONTANEOUSLY BUT NOT FOLLOWING COMMANDS, DOES NOT TRACK.NSR NOTED ON MONITOR.WITH PITTING EDEMA TO RT HAND ALSO NOTED +1.ELEVATED WITH PILLOW.ETT TO VENT; FIO2 24% TV450 AC 12 PEEP5. 100% 02SAT AT THIS TIME.PT COUGHING INTERMITTENTLY WITH SMALL TO MODERATE AMT OF WHITE SECRETIONS SUCTIONED WITH BLOOD.WITH NGT TO LT NARES, IN PLACE.NO RESIDUALS NOTED.ON VITAL AF 1.2 AT 50ML/HR WITH WATER FLUSH ORDERED.WITH GARCIA CATHETER TO BSD DRAINING ADEQUATE AMT OF YELLOW URINE.BM NOTED SMALL AMT OF DARK BROWN SOFT TO LIQUID STOOL.PT CLEANED.PRESSURE ULCER TO SACRUM ALSO NOTED (SEE WOUND ASSESSMENT).PT WITH SEVERE GENERALIZED WEAKNESS NOTED TO ALL EXTREMITIES.FLACC 0.REPOSITIONED.
[2019-03-11 20:00] VITALS: BP 109/68
--- NOTE | 2019-03-11 20:00 | NUR ---
ORAL CARE USING VAP KIT RENDERED.PT ON PEPCID FOR GI PROPHYLAXIS AND SCD TO BLE FOR DVT PROPHYLAXIS.
[2019-03-11 20:11] LABS: ANION GAP 12.2 (8-16); MAGNESIUM 2.1 mg/dL (1.8-2.4); POTASSIUM 3.2 mmol/L (3.5-5.1)
[2019-03-11] MEDS ORDERED: levETIRAcetam 100 MG/ML VIAL IV ONE (20:13)
--- NOTE | 2019-03-11 21:15 | NUR ---
VISITED BY ; UPDATED ON PTS PRESENT CONDITION.QUESTIONS ANSWERED.
[2019-03-11 22:00] VITALS: BP 115/76
[2019-03-11 23:05] VITALS: BP 112/79
[2019-03-12] VITALS (23 sets, daily range): BP systolic 99–123; BP diastolic 67–79
--- NOTE | 2019-03-12 | NUR ---
ORAL CARE DONE.PT REPOSITIONED.SECRETIONS SUCTIONED/ETT AND MOUTH.MODERATE AMT OF THICK CREAMY/DARK BROWN /BLOOD TINGED SECRETIONS NOTED.FLACC 0.REPOSITIONED
[2019-03-12] MEDS: DEXAMETHASONE 4 MG/ML VIAL IVP SCH ×6 (00:46→18:15)
[2019-03-12] MEDS: Z-GUARD PASTE TP SCH (00:47)
[2019-03-12] MEDS: PIPERACILLIN/TAZOBACTAM 3.375 GM in DEXTROSE 5% 50 ML IV SCH ×4 (00:47→18:09)
--- NOTE | 2019-03-12 02:21 | NUR ---
PTS CONDITION REMAINS UNCHANGED.PTS EYES OPEN, NOT TRACKING.FLACC 0.REPOSITIONED
--- NOTE | 2019-03-12 03:46 | NUR ---
bm noted; moderate amt of dark brown liquid stool; morning care done.oral care rendered,pt still coughing intermittently,able to suctioned moderate amt of creamy w/blood tinged secretions.flacc 0.repositioned.
[2019-03-12] MEDS ORDERED: MORPHINE SULFATE 2 MG/ML SYR IVP PRN ×2 (04:20→18:00)
[2019-03-12 06:03] LABS: MAGNESIUM 1.8 mg/dL (1.8-2.4); PHOSPHORUS 1.5 mg/dL (2.5-4.9)
[2019-03-12 06:06] LABS: CREATININE 0.3 mg/dL (0.6-1.3)
--- NOTE | 2019-03-12 06:21 | NUR ---
pts eyes close.nsr on monitor.02sat 100%.flacc 0.repositioned.
[2019-03-12 06:43] LABS: BASOPHILS % (AUTO) 0.1 % (0.0-2.0); HEMATOCRIT 26.8 % (36-48); HEMOGLOBIN 8.6 g/dL (12.0-16.0); LYMPHOCYTES # (AUTO) 0.2 K/uL (2.5-16.5); LYMPHOCYTES % (AUTO) 9.5 % (20.5-51.1); MEAN CORPUSCULAR HEMOGLOBIN 28 pg (27-31); MEAN CORPUSCULAR HGB CONC 32 g/dL (33-37); MEAN CORPUSCULAR VOLUME 88.1 fL (80-94); MONOCYTES # (AUTO) 0.1 K/uL (0.8-1.0); MONOCYTES % (AUTO) 4.9 % (1.7-9.3); NEUTROPHILS # (AUTO) 1.5 K/uL (1.8-7.7); NEUTROPHILS % (AUTO) 85.5 % (42.2-75.2); PLATELET COUNT (AUTO) 137 K/uL (140-450); RED BLOOD CELL COUNT(AUTO) 3.04 MIL/uL (4.20-5.40); RED CELL DISTRIBUTION WIDTH 18.6 % (11.6-13.7)
[2019-03-12 06:53] LABS: ANION GAP 12.5 (8-16); CARBON DIOXIDE 26.7 mmol/L (21-32); POTASSIUM 3.2 mmol/L (3.5-5.1)
[2019-03-12 06:54] LABS: CREATININE 0.3 mg/dL (0.6-1.3); WHITE BLOOD COUNT (AUTO) 1.8 K/uL (4.8-10.8)
[2019-03-12] MEDS: ALBUTEROL SULFATE/IPRATROPIU 3 ML SOL IH SCH ×3 (07:00→19:00)
--- NOTE | 2019-03-12 07:07 | NUR ---
REPORT GIVEN TO SHINE COLE
--- NOTE | 2019-03-12 07:30 | NUR ---
RECEIVED REPORT FROM ANITA RIOJAS PT IS ETT TO VENT FIO2 AT 24% AC12 VT 450 PEEP OF 5/ O2 SAT 99%.HER SKIN DRY AND WARM TO TOUCH COLOR IS NORMAL HAS RED RASH ON LEFT FACE , HAS BLISTER ON ABDOMEN. PRESSURE SORE ON SACRAL . NGTUBE FEEDING WITH VITAL AF 1.2 AT 50ML./HR ABDOMEN SOFT BOWEL SOUND ACTIVE.GARCIA CATH DRAIN LIGHT ALE URINE . SCD AND HEELS PROTECTERS IN PLACE.
--- NOTE | 2019-03-12 07:36 | NUR ---
rec'd pt on carescape vent settings ac 12 vt 450 peep 5 fio2 24% alarms on and audible and ambu bag at hob no tx given pt sleeping with no signs of distress noted at this time, b\s are clear bilaterally, sxn pt small amt of cream color secretions, pt is orally intubated with 7.5 et tube secured with anchor fast at 24 cm pt is sleeping
--- NOTE | 2019-03-12 07:45 | NUR ---
CELIA BAEZA MAKE ROUND WITH THE RESIDENTS PLAN TO HAVE MEETING WITH FAMILY AT 1300.PM.
[2019-03-12] MEDS ORDERED: POTASSIUM PHOSPHATE 15 MM in NACL 0.9% 250 ML IV SCH (08:30)
[2019-03-12] MEDS ORDERED: POTASSIUM CHLORIDE 20% 40 MEQ/15 ML UDC NG SCH (08:30)
--- NOTE | 2019-03-12 08:30 | NUR ---
REPOSITION ORAL CARE WITH VAP KIT.
[2019-03-12 09:51] LABS: PHOSPHORUS 0.7 mg/dL (2.5-4.9)
--- NOTE | 2019-03-12 10:00 | NUR ---
VISIT AT BED SIDE. WILL HAVE MEETING WITH THE DOCTER THIS AFTERNOON,.
[2019-03-12] MEDS: levETIRAcetam 500 MG in NACL 0.9% 100 ML IV SCH ×2 (10:16→20:22)
[2019-03-12] MEDS: FAMOTIDINE 20 MG TAB PO SCH ×2 (10:17→20:21)
[2019-03-12] MEDS: ATORVASTATIN 20 MG TAB GT SCH (10:17)
--- NOTE | 2019-03-12 10:30 | NUR ---
REPOSITION INCONTINENT OF LARGE LOOSE BM .
[2019-03-12 10:40] LABS: BASOPHILS % (AUTO) 0.1 % (0.0-2.0); HEMATOCRIT 28.8 % (36-48); HEMOGLOBIN 9.1 g/dL (12.0-16.0); LYMPHOCYTES # (AUTO) 0.2 K/uL (2.5-16.5); LYMPHOCYTES % (AUTO) 7.8 % (20.5-51.1); MEAN CORPUSCULAR HEMOGLOBIN 28 pg (27-31); MEAN CORPUSCULAR HGB CONC 32 g/dL (33-37); MEAN CORPUSCULAR VOLUME 87.2 fL (80-94); MONOCYTES # (AUTO) 0.1 K/uL (0.8-1.0); MONOCYTES % (AUTO) 2.6 % (1.7-9.3); NEUTROPHILS # (AUTO) 2.4 K/uL (1.8-7.7); NEUTROPHILS % (AUTO) 89.5 % (42.2-75.2); PLATELET COUNT (AUTO) 86 K/uL (140-450); RED CELL DISTRIBUTION WIDTH 19.1 % (11.6-13.7); WHITE BLOOD COUNT (AUTO) 2.7 K/uL (4.8-10.8)
[2019-03-12] MEDS ORDERED: LOPERAMIDE 1 MG/5 ML ORASYR NG SCH (12:00)
--- NOTE | 2019-03-12 12:20 | NUR ---
HAS VISIT BY FAMILY FROM [place] 12 OF THEM, WHO WILL HAVE THE MEETING WITH DR LEMUS AND .
--- NOTE | 2019-03-12 12:57 | NUR ---
pt has very high heart rate of 124 no hhn given family at bedside
--- NOTE | 2019-03-12 14:00 | NUR ---
REPOSITION SUCTION HAS LOOSE SECRETION,
--- NOTE | 2019-03-12 16:00 | NUR ---
REPOSITION , ORAL CARE GIVEN,
--- NOTE | 2019-03-12 19:10 | NUR ---
Received pt stable on vent support at documented settings, suctioned moderate amounts of thick yellow secretions along with thick red mucous plugs, hhn tx given, tolerated well, no resp dsitress or SOB noted at this time, 7.5 ETT secured at 24 cm with anchorfast, alarms set and audible, ambu bag at bedside, vent plugged into red outlet, vent wiped down, cont pulse ox on, will cont to monitor.
--- NOTE | 2019-03-12 19:20 | NUR ---
VITAL SIGN WITH IN MNORMAL LIMIT REPORT GIVE TO ROLA RIOJAS.
--- NOTE | 2019-03-12 19:35 | NUR ---
RECEIVED PT FROM ROLA RN. PT LETHARGIC. PERRL. PUPILS SIZE 3 MM BILATERALLY. NOT ABLE TO OPEN EYES SPONTANEOUSLY, NOT TRACKING. WITHDRAWS TO PAIN. NOT ABLE TO SQUEEZE HANDS. NOT ABLE TO FOLLOW SIMPLE COMMANDS. PT ETT TO VENT. LIP LINE AT 23CM. ON ACVC SETTINGS. FIO2 24% TV 450 RATE 12 PEEP 5. LUNG SOUNDS CLEAR. NO SOB NOTED. CHEST RISE SYMMETRICAL AND EVEN. SINUS TACHYCARDIA ON MONITOR. BASELINE 100-105. NGT IN LEFT NARE TO FEEDING VITAL AF 1.2. AUSCULTATED FOR VERIFICATION. NO RESIDUALS NOTED. BOWEL SOUNDS ACTIVE. RIGHT EJ, TRIPLE LUMEN, INTACT, PATENT, FLUSHED. GARCIA CATHETER IN PLACE. LIGHT ALE URINE. SKIN WARM AND DRY. CAP REFILL LESS THAN 2 SECONDS. WOUND NOTED ON SACRUM. SEE WOUND ASSESSMENT. SCD ON BILATERAL LOWER EXTREMITIES. CANNOT MOVE BILATERAL UPPER AND LOWER EXTREMITIES. ON CONTACT PRECAUTIONS. ALARMS CHECKED. HOB 30 DEGREES. BED LOCKED IN LOWEST POSITION. WILL CONTINUE MONITOR.
--- NOTE | 2019-03-12 20:30 | NUR ---
AT BESIDE. UPDATE GIVEN, QUESTIONS ANSWERED. EXPLAINED PLAN OF CARE. TOLD WILL CALL IF ANY CHANGES IN CONDITION.
--- NOTE | 2019-03-12 22:16 | NUR ---
PT REPOSITIONED. LOOSE, LIQUID, BROWN BOWEL MOVEMENT. MODERATE AMOUNT. FOUL ODOR NOTED. HU CARE PROVIDED. BED IN LOWEST POSITION. WILL CONTINUE TO FREQUENTLY MONITOR.
[2019-03-13] VITALS (24 sets, daily range): BP systolic 103–128; BP diastolic 70–81
--- NOTE | 2019-03-13 00:50 | NUR ---
DUE MEDICATIONS GIVEN. EDUCATION PROVIDED. ORAL CARE PROVIDED. TUBE FEEDINGS CHANGED. V/S STABLE. WILL CONTINUE TO FREQUENTLY MONITOR.
[2019-03-13] MEDS: PIPERACILLIN/TAZOBACTAM 3.375 GM in DEXTROSE 5% 50 ML IV SCH ×4 (00:58→17:37)
[2019-03-13] MEDS: DEXAMETHASONE 4 MG/ML VIAL IVP SCH ×4 (00:59→17:37)
--- NOTE | 2019-03-13 02:29 | NUR ---
PATIENT RESTING IN BED. NO SIGNS OF PAIN. V/S STABLE. WILL CONTINUE TO FREQUENTLY MONITOR.
--- NOTE | 2019-03-13 04:30 | NUR ---
RECEIVED PATIENT FROM RN SUMMER FOR CONTINUITY OF CARE.
--- NOTE | 2019-03-13 04:30 | NUR ---
ENDORSED PATIENT TO CHARGE NURSE EDY TO CONTINUE CARE. PATIENT STABLE. V/S STABLE. NO SIGNS OF PAIN AT THIS TIME.
--- NOTE | 2019-03-13 06:00 | NUR ---
NEURO STATUS REMAINS THE SAME. V/S WITHIN NORMAL RANGE.
[2019-03-13] MEDS: ALBUTEROL SULFATE/IPRATROPIU 3 ML SOL IH SCH ×3 (06:26→18:52)
--- NOTE | 2019-03-13 06:26 | NUR ---
RECEIVED PT ON CARESCAPE ON DOCUMENTED SETTINGS, ALARMS ARE ON AND AUDIBLE, PTS ETT IS SECURE SIZE 7.5 [address], PT IN HF NOT ALERT, BS CLEAR SX MOD YELLOW, HHN GIVEN I\L WITH 3 MG DUONEB, BMV HOB, VENT PLUGGED INTO RED OUTLET, WILL CONTINUE TO MONITOR
--- NOTE | 2019-03-13 07:20 | NUR ---
ENDORSED TO RN DOUGLAS FOR CONTINUITY OF CARE.
--- NOTE | 2019-03-13 07:30 | NUR ---
RECEIVED REPORT FROM ROLA RN. PT REMAINON ETT TO VENT SETTING REMAIN UNCHANGED. SKIN WARM AND DRY TO TOUCH. ON LEFT SIDE OF HER FACE REMAIN HAS RED RASH ABDOMEN HAS RED BLISTER UN OPEN. NGT FEEDING WIT VITAL AF AT 50 ML/HR. ABDOMEN SOFT BOWEL SOUND ACTIVE. GARCIA CATH DRAIN LIGHT ALE URINE.
--- NOTE | 2019-03-13 08:00 | NUR ---
MAKE ROUND BY DR. YANG AND THE RESIDENT NO CHANGED IN ORDER.
[2019-03-13] MEDS: levETIRAcetam 500 MG in NACL 0.9% 100 ML IV SCH ×2 (08:15→21:17)
[2019-03-13] MEDS: ATORVASTATIN 20 MG TAB GT SCH (08:15)
[2019-03-13] MEDS: FAMOTIDINE 20 MG TAB PO SCH ×2 (08:15→21:17)
[2019-03-13] MEDS ORDERED: SODIUM PHOSPHATE 30 MMOLE in NACL 0.9% 250 ML IV SCH (08:30)
--- NOTE | 2019-03-13 09:45 | NUR ---
SEEN BY DR CORDOVA AND DR. LEMUS.
--- NOTE | 2019-03-13 10:00 | NUR ---
VISIT BY AND FAMILY AT BEDSIDE PT CONDITION HAS NOT CHANGED.
[2019-03-13] MEDS ORDERED: LOPERAMIDE 1 MG/5 ML ORASYR NG PRN (10:55)
[2019-03-13] MEDS: MORPHINE SULFATE 2 MG/ML SYR IVP SCH ×2 (12:00→17:37)
--- NOTE | 2019-03-13 12:00 | NUR ---
REPOSITION , ORAL CARE WITH VAB KIT . V/S WITH IN NORMAL LIMIT.
[2019-03-13] MEDS: ACETAMINOPHEN 325 MG TAB PO PRN ×2 (12:50→17:38)
--- NOTE | 2019-03-13 14:00 | NUR ---
VISIT BY FAMILY FROM [place] AND AT BED SIDE.
--- NOTE | 2019-03-13 16:00 | NUR ---
TEMP 100 . REPOSITION ORAL CARE WITH VAP KIT NO CHANGE IN CONDITION.
--- NOTE | 2019-03-13 18:00 | NUR ---
CONDITION REMAIN THE SAME .
[2019-03-13 19:03] LABS: ANION GAP 12.2 (8-16); CARBON DIOXIDE 26.2 mmol/L (21-32); CREATININE 0.4 mg/dL (0.6-1.3); PHOSPHORUS 1.3 mg/dL (2.5-4.9); POTASSIUM 3.4 mmol/L (3.5-5.1)
--- NOTE | 2019-03-13 19:03 | NUR ---
Received pt stable on vent support at documented settings, suctioned moderate amounts of thick yellow secretions with blood tinged mucuous plugs, hhn tx given, tolerated well, no resp distress or SOB noted at this time, 7.5 ETT secured with anchor fast at 24 cm at the lip, alarms set and audible, ambu bag at bedside, vent plugged into red outlet and wiped down, cont pulse ox on, will cont to monitor.
--- NOTE | 2019-03-13 19:15 | NUR ---
NO CHANGE IN CONDITION REPORT GIVED TO EDY RIOJAS.
--- NOTE | 2019-03-13 19:20 | NUR ---
RECEIVED PATIENT ON BED WITH HOB ELEVATED TO 30 DEGREE; OBTUNDED, FLACCID EXTREMITIES. OPEN EYES SPONTANEOUSLY BUT BUT DOESN'T TRACKS. ORALLY INTUBATED AND VENTILATED AT 24% FIO2. ON SINUS RHYTHM NO ARRHYTHMIAS SEEN. ABDOMEN IS SOFT; HYPOACTIVE BOWEL SOUNDS. ON CONTINOUS TUBE FEEDING VITAL AF AT 50 ML/HR VIA NGT, TOLERATED. WITH GARCIA CATH IN SITU TO GRAVITY DRAINAGE BAG DRAINING TO CLEAR YELLOW URINE OUTPUT; PATENT AND INTACT
--- NOTE | 2019-03-13 21:00 | NUR ---
VISITED BY THE FAMILY. UPDATED ON PATIENT'S MEDICAL CONDITION.
[2019-03-13] MEDS ORDERED: levETIRAcetam 100 MG/ML VIAL IV ONE (21:07)
[2019-03-14] VITALS (15 sets, daily range): BP systolic 117–128; BP diastolic 75–81
--- NOTE | 2019-03-14 00:30 | NUR ---
TURNED AND REPOSITIONED PATIENT; ORAL CARE DONE WITH VAP KIT.
[2019-03-14] MEDS: PIPERACILLIN/TAZOBACTAM 3.375 GM in DEXTROSE 5% 50 ML IV SCH ×2 (01:01→05:32)
[2019-03-14] MEDS: DEXAMETHASONE 4 MG/ML VIAL IVP SCH ×5 (01:02→23:41)
[2019-03-14] MEDS: MORPHINE SULFATE 2 MG/ML SYR IVP SCH ×2 (01:04→05:33)
--- NOTE | 2019-03-14 04:20 | NUR ---
MORNING BED BATH DONE; KEPT CLEAN DRY AND COMFORTABLE. CENTRAL LINE DRESSING CHANGED.
[2019-03-14] MEDS: ALBUTEROL SULFATE/IPRATROPIU 3 ML SOL IH SCH (06:24)
--- NOTE | 2019-03-14 06:24 | NUR ---
REC'D PT ON CARESCAPE VENT SETTINGS AC 14 VT 450 PEEP 5 FIO2 24% ALARMS ON AND AUDIBLE AND AMBU BAG AT HOB AND VENT IS PLUGGED INTO RED OUTLET, I\L TX GIVEN WITH DUONEB 3ML WITH NO ADVERSE REACTION POST TX B\S ARE CLEAR BILATERALLY, SXN PT MODERATE AMT OF YELLOW SECRETIONS, PT IS ORALLY INTUBATED WITH 7.5 ET TUBE SECURED WITH ANCHOR FAST AT 24 CM PT IS RESTING
[2019-03-14 06:34] LABS: ANION GAP 11.5 (8-16); CARBON DIOXIDE 29.1 mmol/L (21-32); CREATININE 0.3 mg/dL (0.6-1.3)
[2019-03-14 06:38] LABS: BASOPHILS % (AUTO) 0.1 % (0.0-2.0); HEMATOCRIT 24.5 % (36-48); HEMOGLOBIN 7.9 g/dL (12.0-16.0); LYMPHOCYTES # (AUTO) 0.2 K/uL (2.5-16.5); MEAN CORPUSCULAR HEMOGLOBIN 29 pg (27-31); MEAN CORPUSCULAR HGB CONC 32 g/dL (33-37); MEAN CORPUSCULAR VOLUME 88.4 fL (80-94); MONOCYTES # (AUTO) 0.1 K/uL (0.8-1.0); MONOCYTES % (AUTO) 2.1 % (1.7-9.3); NEUTROPHILS % (AUTO) 92.8 % (42.2-75.2); PLATELET COUNT (AUTO) 200 K/uL (140-450); RED BLOOD CELL COUNT(AUTO) 2.77 MIL/uL (4.20-5.40); RED CELL DISTRIBUTION WIDTH 18.9 % (11.6-13.7); WHITE BLOOD COUNT (AUTO) 4.3 K/uL (4.8-10.8)
[2019-03-14 06:39] LABS: POTASSIUM 2.6 mmol/L (3.5-5.1)
[2019-03-14 06:41] LABS: MAGNESIUM 1.5 mg/dL (1.8-2.4); PHOSPHORUS 1.4 mg/dL (2.5-4.9)
--- NOTE | 2019-03-14 07:20 | NUR ---
ENDORSED TO AM SHIFT SHINE ESCALERA FOR CONTINUITY OF CARE.
--- NOTE | 2019-03-14 07:30 | NUR ---
REPORT RECEIVED FROM SHINE SNOW. PT. OPENS EYES SPONTANEOUSLY BUT DOES NOT TRACK. NO MOVEMENT OF EXT. NOTED. ETT TO VENT, 02 SAT 98% TO 99%. SUCTIONED VIA ETT. MD OWEN BLOOD TINGED SPUTUM. TRIPLE LUMEN CATHETER ON RT IJ. SITE CLEAR IV 0.9 NS AT 3 ML/HR. NGT INTACT AND PATENT. PLACEMENT VERIFIED BY AIR CHECK. RESIDUAL 5 ML. VITAL AF AT 30 ML/HR WITH 120 ML H20 FLUSHES Q 4 HRS. HOB ELEVATED 30 DEGREES. NAIL MAKING MACHINE SETTER SHOWS SR WITHOUT ECTOPICS.
--- NOTE | 2019-03-14 08:15 | NUR ---
DR. Contreras JONES AT BEDSIDE. SPOKE TO PT'S .
[2019-03-14] MEDS: FAMOTIDINE 20 MG TAB PO SCH (08:23)
[2019-03-14] MEDS: levETIRAcetam 500 MG in NACL 0.9% 100 ML IV SCH ×2 (08:23→20:00)
[2019-03-14] MEDS: ATORVASTATIN 20 MG TAB GT SCH (08:23)
[2019-03-14] MEDS: ALGINATE ROPE MC SCH (09:00)
[2019-03-14] MEDS: Z-GUARD PASTE TP SCH (09:00)
--- NOTE | 2019-03-14 09:00 | NUR ---
PT'S FAMILY AT BEDSIDE. UPDATED ON PT'S CONDITION.
--- NOTE | 2019-03-14 11:05 | NUR ---
Farm Product Purchaser Note: I met with patient's Oli Spence at bedside. He stated he has had good communication with attending MD and nursing staff regarding patient's plan of care and does not have any questions/concerns at this time.
[2019-03-14] MEDS: KCL 20 MEQ/WATER INJ PREMIX 200 ML IV SCH (11:14)
--- NOTE | 2019-03-14 11:14 | NUR ---
K+2.6, K RIDER 40 MEQ, 200ML STARTED AT 50 ML/HR.
--- NOTE | 2019-03-14 11:15 | NUR ---
WANTS TO TALK TO DR. LEMUS. STATES THAT FAMILY HAS ALREADY MADE DECISION. SPOKE TO DR. PULLIAM. WILL BE HERE TO TALK TO FAMILY.
[2019-03-14] MEDS ORDERED: SCOPOLAMINE 1.5 MG/72 HR PATCH TD PRN (11:20)
[2019-03-14] MEDS ORDERED: LORazepam 2 MG/ML VIAL IVP PRN (11:40)
--- NOTE | 2019-03-14 12:00 | NUR ---
NGT FEEDING HELD AT THIS TIME FOR TERMINAL EXTUBATION.
--- NOTE | 2019-03-14 12:05 | NUR ---
ATIVAN 1 MG IVP GIVEN PRIOR TO EXTUBATION.
[2019-03-14] MEDS: MORPHINE SULFATE 50 MG in NACL 0.9% 45 ML IV PRN ×2 (12:15→18:13)
--- NOTE | 2019-03-14 12:15 | NUR ---
MORPHINE SULFATE DRIP STARTED AT 2 MG/HR PRIOR TO EXTUBATION.
--- NOTE | 2019-03-14 12:28 | NUR ---
PT EXTUBATED AND PLACED ON 2LNC FAMILY AT BEDSIDE
--- NOTE | 2019-03-14 13:00 | NUR ---
MORPHINE DRIP INCREASED TO 4 MG/HR FOR COMFORT.
--- NOTE | 2019-03-14 14:00 | NUR ---
MORPHINE INCREASED TO 6 MG/HR OR COMFORT.
--- NOTE | 2019-03-14 14:15 | NUR ---
PT UNRESPONSIVE AT THIS TIME. DR. PULLIAM AWARE. WILL KEEP MORPHINE DRIP JUST AT 6 MG/HR.
--- NOTE | 2019-03-14 16:00 | NUR ---
NGT FEEDING RESTARTED AT 50 ML/HR PER DIETITIAN.
--- NOTE | 2019-03-14 16:09 | NUR ---
03/14/19 RD FOLLOW UP COMPLETED PLEASE REFER TO NUTRITION ASSESSMENT UNDER CARE ACTIVITY FOR ESTIMATED NUTRITIONAL NEEDS. 1. INCREASE VITAL AF 1.2 @ 50 ML/HR -THIS WILL PROVIDE 1200 ML OF VOLUME, 1440 KCAL, AND 90 GM OF PROTEIN 2. RECOMMEND FREE WATER FLUSH [address] TO FOLLOW-UP 2-3 DAYS, HIGH RISK CHUCHO BURGER, RD
--- NOTE | 2019-03-14 17:30 | NUR ---
DR. JONES HERE, SPOKE TO PT'S FAMILY.
--- NOTE | 2019-03-14 18:00 | NUR ---
UNRESPONSIVE AT THIS TIME. MORPHINE AT 6 MG/HR. 02 AT 2 L/MIN/NC. RR 12 TO 13/MIN. NO RESPIRATORY DISTRESS NOTED. REMAINS IN SR TO ST HR 105/MIN.
--- NOTE | 2019-03-14 19:45 | NUR ---
PT IS LETHARGIC. NGT LEFT NARE, NO RESIDUALS NOTED. ABDOMEN SOFT HYPOACTIVE BOWEL SOUNDS. PICC LINE MINERVA, INTACT, FLUSHED, PATENT. MORPHINE DRIP AT 6ML/HR. NO SOB NOTED. SKIN IS WARM AND DRY. CAP REFILL LESS THAN 2 SECONDS. SKIN NON INTACT. SEE WOUND ASSESSMENT. GARCIA CATHETER IN PLACE. GENERALIZED WEAKNESS. FLACC 0.
--- NOTE | 2019-03-14 20:30 | NUR ---
TRANSFERRED TO MED SURG ON MORPHINE DRIP.FOR COMFORT MEASURES. AT BEDSIDE.
--- NOTE | 2019-03-14 20:30 | NUR ---
DENIZ. FROM ICU ACCOMPANIED BY SHINE CEDENO AND SPIKEMAKING SUPERVISOR ASIM. PATIENT IS LETHARGIC. ON 02 AT 2 LITERS VIA N/C, SATURATING 97%. RESPIRATION EVEN AND UNLABORED. IV OF NS AT TKO, ON MORPHINE DRIP AT 6 MG/HR INFUSING, RIGHT IJ TRIPLE LUMEN CENTRAL LINE. WITH NGT FOR GT FEEDING. F/C PATENT DRAINING CLEAR YELLOW URINE. ON BILATERAL LEG SEQUENTIALS. WITH S2 SACRAL WOUND COVERED WITH DRESSING. PATIENT IS DNR, COMFORT MEASURES ONLY. AT THE BEDSIDE.
--- NOTE | 2019-03-14 21:00 | NUR ---
NGT PLACEMENT CHECKED WITH CHARGE NURSE SHANTELLE PALOMINO. VITAL AF NGT FEEDING STARTED AT 50 ML/HR. HOB ELEVATED 35 DEGREES.
--- NOTE | 2019-03-14 21:40 | NUR ---
Patient's Plan of Care was discussed and reviewed with FACE AND FILL PACKER: LOIS GALAN
--- NOTE | 2019-03-14 22:00 | NUR ---
REPOSITIONED IN BED BUT DOES NOT LIKE IT. REPOSITIONED AGAIN BY CNAs.
[2019-03-15] VITALS: BP 121/73
--- NOTE | 2019-03-15 | NUR ---
REMAINS UNRESPONSIVE, VS STABLE.
--- NOTE | 2019-03-15 02:00 | NUR ---
MACHINE FOR WOUND CARE BED ATTACHED..
[2019-03-15] MEDS: MORPHINE SULFATE 50 MG in NACL 0.9% 45 ML IV PRN ×3 (02:27→21:21)
[2019-03-15 04:00] VITALS: BP 108/72
[2019-03-15] MEDS: DEXAMETHASONE 4 MG/ML VIAL IVP SCH ×3 (05:29→18:23)
--- NOTE | 2019-03-15 06:30 | NUR ---
NGT FEEDING RESIDUAL 15 ML. TOLERATING FEEDING WELL. VS REMAIN STABLE.
--- NOTE | 2019-03-15 07:30 | NUR ---
RECEIVED REPORT AT BEDSIDE FROM NIGHTSHIFT NURSE. PT LYING IN BED. SKIN WARM AND DRY TO TOUCH. RESPIRATIONS EVEN AND UNLABORED WITH NO SOB OR RESPIRATORY DISTRESS. FLACC 0. EJ PICC LINE DRESSING AND SITE CLEAN, DRY, AND INTACT. SAFETY MEASURES IN PLACE: HOB ELEVATED, SIDE RAILS PADDED, BED ALARM, ACTIVATED, BED IN LOWEST POSITION, AND CALL LIGHT WITHIN REACH. WILL CONTINUE TO MONITOR
[2019-03-15 08:00] VITALS: BP 126/77
[2019-03-15] MEDS: levETIRAcetam 500 MG in NACL 0.9% 100 ML IV SCH ×2 (09:47→20:56)
--- NOTE | 2019-03-15 09:54 | NUR ---
PT LYING IN BED COMFORTABLY WITH AND BEDSIDE. VS MONITORING, VITAL SIGNS FOLLOW: 126/75, 98% SPO2, HR 102, RR 15, AND TEMP 98.4, FLACC 0. MORPHINE DRIP AT 6ML/HR. ADMINISTERED MEDICATION PRESCRIBED PER MD ORDER. NO COMPLICATIONS AT THIS TIME. PATIENT TOLERATED WELL. MEDICATION EDUCATION PROVIDED TO PT AND AT BEDSIDE. FEEDING IS INFUSING PER MD ORDER. NO SIGNS OF DISTRESS NOTED. SAFETY MEASURES IN PLACE. BED IN LOW POSITION AND CALL LIGHT WITHIN REACH. INSTRUCTED PATIENT'S TO USE THE CALL LIGHT FOR ANY ASSISTANCE AND HE WAS AWARE.
--- NOTE | 2019-03-15 11:23 | NUR ---
HUNG A NEW BAF OF MORPHINE SULFATE 50 ML AND ON CONTINUE DRIP AT 6ML/HR. VITAL SIGNS FOLLOWS: 120/75, PULSE 93, RR 14 ON 2LPM VIA NC, SPO2 95%, FLACC 0. PATIENT'S IS BY BEDSIDE. NO SIGNS OF DISTRESS NOTED. SAFETY MEASURES IN PLACE. BED IN LOW POSITION AND CALL LIGHT WITHIN REACH. BED ALARM ACTIVATED.
[2019-03-15] MEDS: KCL 20 MEQ/WATER INJ PREMIX 200 ML IV SCH (11:39)
--- NOTE | 2019-03-15 11:39 | NUR ---
ADMINISTERED THE 1ST BAG OF POTASSIUM PER MD ORDER FOR LOW K FROM LAB, MED ED PROVIDED TO AT BEDSIDE. PATIENT IS RESTING ON BED COMFORTABLY. FLACC 0. NO SIGNS OF DISTRESS NOTED. SAFETY MEASURES IN PLACE.
--- NOTE | 2019-03-15 12:52 | NUR ---
ADMINISTERED MEDICATION PRESCRIBED PER MD ORDER. PT TOLERATED WELL. EDUCATED PATIENT ON MEDICATION REGIMEN. NO COMPLICATIONS AT THIS TIME. RESPIRATIONS EVEN AND UNLABORED WITH NO SOB OR RESPIRATORY DISTRESS. SAFETY MEASURES IN PLACE
--- NOTE | 2019-03-15 13:37 | NUR ---
PATIENT IN BED ASLEEP WITH FAMILY AT BEDSIDE. RESPIRATIONS EVEN AND UNLABORED WITH NO SOB OR RESPIRATORY DISTRESS. SKIN WARM AND DRY TO TOUCH. NO COMPLAINTS OR CONCERNS AT THIS TIME. FREQUENT CHECKS MADE. SAFETY MEASURES: HOB ELEVATED, BED IN LOWEST POSITION, AND CALL LIGHT WITHIN REACH.
--- NOTE | 2019-03-15 15:08 | NUR ---
HOURLY ROUNDING, PT PEACEFULLY RESTING IN BED. NO SIGNS OF DISTRESS NOTED. FAMILY AT BEDSIDE. RESPIRATIONS EVEN AND UNLABORED WITH NO SOB OR RESPIRATORY DISTRESS. PATIENT IS STABLE. WILL CONTINUE TO MONITOR
[2019-03-15 16:00] VITALS: BP 123/81
--- NOTE | 2019-03-15 16:03 | NUR ---
PATIENT IS RESTING IN BED WITH FAMILY AT BEDSIDE. FLACC 0. RESPIRATIONS EVEN AND UNLABORED WITH NO SOB OR RESPIRATORY DISTRESS. SKIN WARM AND DRY TO TOUCH. NO SIGNS OF DISTRESS PRESENT. SAFETY MEASURES: HOB ELEVATED, BED IN LOWEST POSITION, AND CALL LIGHT WITHIN REACH. WILL CONTINUE TO MONITOR.
--- NOTE | 2019-03-15 17:05 | NUR ---
PATIENT'S FAMILY CALLED AND HAD SOME CONCERNS ABOUT THE PT'S STOMACH BEING SLIGHTLY DISTENDED. DR. HIGGINS EDUCATED FAMILY ON WHY HER STOMACH IS DISTENDED. THE FAMILY INSISTED ON THE FEEDING RATE TO DECREASE. DR. HIGGINS ORDERED A DECREASE IN FEEDS TO ONLY 5ML/HR. PT TOLERATED WELL. NO COMPLAINTS OR CONCERNS AT THIS TIME. WILL CONTINUE TO MONITOR
--- NOTE | 2019-03-15 18:27 | NUR ---
PT RESTING IN BED WITH FAMILY AT BEDSIDE. ADMINISTERED MEDICATION PRESCRIBED PER MD ORDER. PT TOLERATED WELL. MEDICATION EDUCATION PERFORMED TO PT AND FAMILY. FAMILY ABLE TO VERBALIZE UNDERSTANDING. PT RESPIRATIONS EVEN AND UNLABORED WITH NO SOB OR RESPIRATORY DISTRESS.
--- NOTE | 2019-03-15 19:15 | NUR ---
ENDORSED TO NIGHTSHIFT NURSE AT BEDSIDE. PT RESTING IN BED. SKIN WARM AND DRY TO TOUCH. RESPIRATIONS EVEN AND UNLABORED WITH NO SOB OR RESPIRATORY DISTRESS. SAFETY MEASURES: HOB ELEVATED, BED IN LOWEST POSITION, AND CALL LIGHT WITHIN REACH. PT IS STABLE.
--- NOTE | 2019-03-15 19:20 | NUR ---
RECEIVED PT FROM DAY SHIFT NURSE PT LETHARGIC , NGTUBE IN PLACE ON 05 08 LTS VIA NC, CENTRAL LINE ON RT IJ PATENT PT IS SUCTIONED NECESSARY , ON MORPHINE DRIP 6MG/H, REPOSLITONED INITIAL ASSESSMENT DONE,
[2019-03-15 19:43] LABS: HEMATOCRIT 28.4 % (36-48); HEMOGLOBIN 8.9 g/dL (12.0-16.0); RED BLOOD CELL COUNT(AUTO) 3.23 MIL/uL (4.20-5.40)
[2019-03-15 19:44] LABS: MEAN CORPUSCULAR HEMOGLOBIN 28 pg (27-31); MEAN CORPUSCULAR HGB CONC 31 g/dL (33-37); MEAN CORPUSCULAR VOLUME 87.8 fL (80-94); PLATELET COUNT (AUTO) 92 K/uL (140-450)
[2019-03-15 19:45] LABS: LYMPHOCYTES % (MANUAL) 17 % (20-46); MONOCYTES % (MANUAL) 2 % (5-12)
[2019-03-15 20:00] VITALS: BP 140/91
--- NOTE | 2019-03-15 21:39 | NUR ---
DOCTOR JEFRY IS HERE AND TALK TO PT'S REGARDING TX
[2019-03-16] VITALS: BP 123/89
--- NOTE | 2019-03-16 | NUR ---
PT REPOSITIONED , NOT SIGNS OF DISTRESS NOTED, ON MORPHINE DRIP CONTINUING
[2019-03-16] MEDS: DEXAMETHASONE 4 MG/ML VIAL IVP SCH ×3 (00:01→12:00)
--- NOTE | 2019-03-16 03:10 | NUR ---
PT ;ON CLOSE MONITORING ON MORPHINE DRIP , LETHARGIC RELATIVE AT BED SIDE ALL TIME IAN DISTRESS NOTED
--- NOTE | 2019-03-16 05:00 | NUR ---
PT HASW BEEN REPOSITIONED Q2H, SPONGE BATH GIVEN LINEN CHANGED RELATIVE AT BED SIDE PT ON MORPHINE DRIP 6 MG/H LETHARGIC.
[2019-03-16] MEDS: MORPHINE SULFATE 50 MG in NACL 0.9% 45 ML IV PRN (06:37)
--- NOTE | 2019-03-16 06:46 | NUR ---
PT ON MORPHINE DRIP REMAIN SAME CONDITION LETHARGIC IV ONFUSING WELL ON RT IJ PT WILL BE ENDORSED TO DAY SHIFT NURSE FOR CONTINUE OF CARE
--- NOTE | 2019-03-16 07:42 | NUR ---
RECEIVED REPORT AT BEDSIDE FROM SINGER SONGWRITER NURSE YOHANA. PT LYING IN BED. SKIN WARM AND DRY TO TOUCH. RESPIRATIONS LABORED WITH GARGLING NOISES HEARD. NO RESPIRATORY DISTRESS DUE TO 2L O2 VIA NC. FLACC 0 WITH MORPHINE DRIP AT 6MG/HR. EJ PICC LINE DRESSING AND SITE CLEAN, DRY, AND INTACT WITH DRESSING CHANGED ON 03/14/19. SAFETY MEASURES IN PLACE: HOB ELEVATED, SIDE RAILS PADDED, BED ALARM, ACTIVATED, BED IN LOWEST POSITION, AND CALL LIGHT WITHIN REACH. WILL MONITOR PT CLOSELY.
[2019-03-16] MEDS ORDERED: SCOP1PAT TD (07:55)
[2019-03-16 08:00] VITALS: BP 124/84
[2019-03-16] MEDS: Z-GUARD PASTE TP SCH (09:00)
[2019-03-16] MEDS: ALGINATE ROPE MC SCH (09:00)
--- NOTE | 2019-03-16 09:41 | NUR ---
ADMINISTERED MORNING MEDS TO PT. PT TOLERATING WELL. ALL OTHER NEEDS MET. COMFORT MEASURES IN PLACE. AT BEDSIDE. WILL CONTINUE TO ROUND FREQUENTLY ON PT.
[2019-03-16] MEDS: levETIRAcetam 500 MG in NACL 0.9% 100 ML IV SCH (10:18)
--- NOTE | 2019-03-16 11:34 | NUR ---
PT RESTING IN BED. AT BEDSIDE. FAMILY UPSET DUE TO OVERHEARING SMALL PRODUCTS ASSEMBLER REPORTING THAT PT HAS NO WOUND CARE ORDERS. I CLARIFIED WITH FAMILY THAT WOUND CARE ORDERS ARE IN PLACE AND WOUND CARE IS DONE 3X A WEEK WITH SCHEDULE OF , , SAT. FAMILY VERBALIZED UNDERSTANDING OF CLARIFICATION. ALL OTHER NEEDS MET. WILL CONTINUE TO ROUND FREQUENTLY ON PT.
--- NOTE | 2019-03-16 12:45 | NUR ---
PT DISCHARGED TO [facility] FOR [facility]OSPICE CARE. PT UNABLE TO SIGN PAPERWORK BUT DISCHARGE EXPLAINED TO . AND OTHER FAMILY AT BEDSIDE VERBALIZED UNDERSTANDING. EXPLAINED TO THAT WOUND CARE WILL BE CONTINUED AT THE SNF CENTER. PT LINES LEFT IN PER MD AND FAMILY REQUEST. EXPLAINED TO FAMILY THAT PT DOES NOT NEED NG TUBE IN PLACE BUT FAMILY WANTED TO KEEP IN FOR HOPES THAT PT WILL BE ABLE TO HAVE FEEDING AGAIN. ALL PT PERSONAL BELONGINGS TAKEN WITH FAMILY. PT WAS ON MORPHINE DRIP. MORPHINE WASTED AND WITNESSED BY MY CHARGE NURSE ARABELLA. WRIST BANDS REMOVED AND PLACED IN SHRED BIN. PT DISCHARGE PAPERWORK SENT WITH TRANSPORT TEAM. PT NEEDED 2L O2 AND TRANSPORT TEAM AWARE AND WOULD PROVIDE EN ROUTE TO SNF. PT LEFT IN STABLE CONDITION FOR DISEASE PROCESS.
== END 2019-03-16 12:30 | DRG 870 ==
LOC: EDSEX 17:08 → MED 17:08 → MIC 19:40 → EDBD 19:40 → MTU 03-14 20:56
PROVIDERS: ADMIT General Practice; ATTEND General Practice
PROC: 0BH17EZ Insertion of Endotracheal Airway into Trachea, Via Natural or Artificial Opening (ICD-10-PCS; principal; 2019-03-06)
PROC: 5A1955Z Respiratory Ventilation, Greater than 96 Consecutive Hours (ICD-10-PCS; 2019-03-06)
DX: A41.9 Sepsis, unspecified organism (principal); J69.0 Pneumonitis due to inhalation of food and vomit; R53.2 Functional quadriplegia; J96.21 Acute and chronic respiratory failure with hypoxia; G93.41 Metabolic encephalopathy; E87.1 Hypo-osmolality and hyponatremia; E87.0 Hyperosmolality and hypernatremia; C34.90 Malignant neoplasm of unspecified part of unspecified bronchus or lung; C78.00 Secondary malignant neoplasm of unspecified lung; C79.31 Secondary malignant neoplasm of brain; N17.9 Acute kidney failure, unspecified; N39.0 Urinary tract infection, site not specified; D68.9 Coagulation defect, unspecified; I24.8 Other forms of acute ischemic heart disease; R65.20 Severe sepsis without septic shock; E87.8 Other disorders of electrolyte and fluid balance, not elsewhere classified; E87.6 Hypokalemia; D63.8 Anemia in other chronic diseases classified elsewhere; D70.9 Neutropenia, unspecified; E78.5 Hyperlipidemia, unspecified; E83.39 Other disorders of phosphorus metabolism; E83.42 Hypomagnesemia; Z74.01 Bed confinement status; Z92.3 Personal history of irradiation; K21.9 Gastro-esophageal reflux disease without esophagitis; Z66 Do not resuscitate; Z92.21 Personal history of antineoplastic chemotherapy
CPT/HCPCS: 36415; 36600; 51702; 70450; 71045; 71250; 74018; 80048; 80053; 80305; 81001; 82140; 82150; 82550; 82553; 82803; 83036; 83605; 83690; 83735; 83880; 84100; 84134; 84436; 84443; 84484; 85025; 85610; 85730; 86886; 86900; 86901; 87040; 87070; 87077; 87081; 87086; 87186; 87205; 93005; 93970; 94002; 94003; 94640; 95816; 96365; 96366; 96368; 99285; A4649; J0330; J0696; J1100; J1642; J1953; J2060; J2270; J2405; J2543; J2704; J3370; J3475; J3480; J3490; J7030; J7042; J7060; J7620; Q0092